=== PATIENT | male | born 1985 | race Caucasian/White ===

== ENCOUNTER 2016-11-14 15:02 | Emergency (ER) | payer OTHER ==
[2016-11-14 16:50] LABS: URINE BILIRUBIN NEGATIVE (NEGATIVE); URINE BLOOD TRACE (NEGATIVE); URINE GLUCOSE (UA) NORMAL (NORMAL); URINE KETONE TRACE (NEGATIVE); URINE LEUKOCYTE ESTERASE 1+ (NEGATIVE); URINE NITRATE POSITIVE (NEGATIVE); URINE PROTEIN 1+ (NEGATIVE)
[2016-11-14 17:02] LABS: URINE BACTERIA 1+ (NONE SEEN); URINE MUCUS 2+; URINE RBC 0-5 /[HPF] (0-2); URINE SQUAMOUS EPITHELIAL CELL 0-10 /[HPF] (NONE SEEN); URINE YEAST FEW (NONE SEEN)
== END 2016-11-14 18:36 | disposition home or self-care (01) ==
LOC: ER 15:02
PROVIDERS: Emergency Medicine
DX: N21.1 Calculus in urethra (principal); N39.0 Urinary tract infection, site not specified; M54.9 Dorsalgia, unspecified; F17.210 Nicotine dependence, cigarettes, uncomplicated
CPT/HCPCS: 74150; 81001; 87086; 96372; 99283-25

== ENCOUNTER 2017-01-12 21:32 | Emergency (ER) | payer OTHER ==
[2017-01-12 22:11] LABS: BASO % 0.4 % (0.2-1.2); EOS # 0.1 10_X3_uL (0.0-0.5); EOS % 1.1 % (0.8-7.0); GRAN # 6.1 10_X3_uL (1.8-5.4); GRAN % 53.5 % (34.0-67.9); HEMATOCRIT 40.1 % (40-51); HEMOGLOBIN 13.6 g/dL (13.7-17.5); LYMPH # 4.3 10_X3_uL (1.3-3.6); LYMPH % 37.8 % (21.8-53.1); MEAN CORPUSCULAR HEMOGLOBIN 31.3 pg (27.0-33.0); MEAN CORPUSCULAR HGB CONC 33.9 g/dL (32.0-36.0); MEAN CORPUSCULAR VOLUME 92.4 fL (79-92); MEAN PLATELET VOLUME 12.2 fl (7.5-11.5); MONO # 0.8 10_X3_uL (0.3-0.8); MONO % 7.2 % (5.3-12.2); PLATELET COUNT 201 x10_3/uL (163-337); RED BLOOD COUNT 4.34 x10_6/uL (4.6-6.1); RED CELL DISTRIBUTION WIDTH 12.6 % (11.6-14.4); WHITE BLOOD COUNT 11.4 x10_3/uL (4.2-9.1)
[2017-01-12 22:11] LABS: URINE BILIRUBIN NEGATIVE (NEGATIVE); URINE BLOOD 3+ (NEGATIVE); URINE GLUCOSE (UA) NORMAL (NORMAL); URINE KETONE NEGATIVE (NEGATIVE); URINE LEUKOCYTE ESTERASE TRACE (NEGATIVE); URINE NITRATE NEGATIVE (NEGATIVE); URINE PROTEIN TRACE (NEGATIVE)
[2017-01-12 22:17] LABS: URINE MUCUS TRACE; URINE RBC >20 /[HPF] (0-2); URINE WBC 0-5 /[HPF] (0-3)
[2017-01-12 22:26] LABS: ALBUMIN 4.7 gm/dL (3.4-5.0); ALKALINE PHOSPHATASE 63 U/L (50-136); ALT/SGPT 15 U/L (7.53-40.17); AST/SGOT 13 U/L (6.66-35.34); BILIRUBIN,TOTAL 0.16 mg/dL (0.0-1.0); BLOOD UREA NITROGEN 18 mg/dL (7-18); CALCIUM 9.1 mg/dL (8.7-10.7); CARBON DIOXIDE 29 mmol/L (21-32); CREATININE 0.9 mg/dL (0.6-1.3); GLUCOSE,RANDOM 146 mg/dL (70-99); SODIUM 139 mmol/L (136-145); TOTAL PROTEIN 6.7 gm/dL (6.4-8.2)
== END 2017-01-12 23:10 | disposition home or self-care (01) ==
LOC: ER 21:32
PROVIDERS: Internal Medicine
DX: R31.9 Hematuria, unspecified (principal); R10.31 Right lower quadrant pain; Z87.442 Personal history of urinary calculi; F17.210 Nicotine dependence, cigarettes, uncomplicated; Z79.891 Long term (current) use of opiate analgesic; Z79.899 Other long term (current) drug therapy
CPT/HCPCS: 36415; 74150; 80053; 81001; 85025; 99284-25

== ENCOUNTER 2017-01-13 22:59 | Observation (INO) | payer OTHER ==
[~2017-01-13] VITALS: Ht 175.3 cm; Wt 97.0 kg
[2017-01-14 00:16] LABS: BASO % 0.2 % (0.2-1.2); EOS # 0.1 10_X3_uL (0.0-0.5); EOS % 0.3 % (0.8-7.0); GRAN # 13.6 10_X3_uL (1.8-5.4); GRAN % 78.7 % (34.0-67.9); HEMATOCRIT 36.2 % (40-51); HEMOGLOBIN 12.4 g/dL (13.7-17.5); LYMPH # 2.5 10_X3_uL (1.3-3.6); LYMPH % 14.1 % (21.8-53.1); MEAN CORPUSCULAR HEMOGLOBIN 31.7 pg (27.0-33.0); MEAN CORPUSCULAR HGB CONC 34.3 g/dL (32.0-36.0); MEAN CORPUSCULAR VOLUME 92.6 fL (79-92); MONO # 1.2 10_X3_uL (0.3-0.8); MONO % 6.7 % (5.3-12.2); PLATELET COUNT 180 x10_3/uL (163-337); RED BLOOD COUNT 3.91 x10_6/uL (4.6-6.1); RED CELL DISTRIBUTION WIDTH 12.5 % (11.6-14.4); WHITE BLOOD COUNT 17.3 x10_3/uL (4.2-9.1)
[2017-01-14 00:25] LABS: ALBUMIN 4.3 gm/dL (3.4-5.0); ALKALINE PHOSPHATASE 52 U/L (50-136); ALT/SGPT 13 U/L (7.53-40.17); AMYLASE 33 U/L (15.62-74.58); AST/SGOT 13 U/L (6.66-35.34); BILIRUBIN,TOTAL 0.39 mg/dL (0.0-1.0); BLOOD UREA NITROGEN 15 mg/dL (7-18); CALCIUM 8.9 mg/dL (8.7-10.7); CARBON DIOXIDE 25 mmol/L (21-32); GLUCOSE,RANDOM 112 mg/dL (70-99); LIPASE 21 U/L (6.75-60.75); POTASSIUM 3.7 mmol/L (3.5-5.1); SODIUM 138 mmol/L (136-145); TOTAL PROTEIN 6.5 gm/dL (6.4-8.2)
[2017-01-14 07:05] LABS: BASO % 0.2 % (0.2-1.2); EOS # 0.1 10_X3_uL (0.0-0.5); EOS % 0.5 % (0.8-7.0); GRAN % 66.3 % (34.0-67.9); HEMATOCRIT 38.3 % (40-51); HEMOGLOBIN 12.7 g/dL (13.7-17.5); LYMPH # 2.8 10_X3_uL (1.3-3.6); MEAN CORPUSCULAR HEMOGLOBIN 30.8 pg (27.0-33.0); MEAN CORPUSCULAR HGB CONC 33.2 g/dL (32.0-36.0); MEAN PLATELET VOLUME 12.2 fl (7.5-11.5); MONO # 1.2 10_X3_uL (0.3-0.8); PLATELET COUNT 179 x10_3/uL (163-337); RED BLOOD COUNT 4.12 x10_6/uL (4.6-6.1); RED CELL DISTRIBUTION WIDTH 12.6 % (11.6-14.4); WHITE BLOOD COUNT 12.1 x10_3/uL (4.2-9.1)
[2017-01-14 07:16] LABS: ALBUMIN 3.9 gm/dL (3.4-5.0); ALKALINE PHOSPHATASE 51 U/L (50-136); ALT/SGPT 11 U/L (7.53-40.17); AST/SGOT 12 U/L (6.66-35.34); BILIRUBIN,TOTAL 0.56 mg/dL (0.0-1.0); BLOOD UREA NITROGEN 14 mg/dL (7-18); CALCIUM 8.9 mg/dL (8.7-10.7); CARBON DIOXIDE 26 mmol/L (21-32); CREATININE 1.2 mg/dL (0.6-1.3); GLUCOSE,RANDOM 95 mg/dL (70-99); POTASSIUM 4.3 mmol/L (3.5-5.1); SODIUM 139 mmol/L (136-145); TOTAL PROTEIN 5.9 gm/dL (6.4-8.2)
== END 2017-01-14 13:15 | disposition home or self-care (01) ==
LOC: ER 22:59 → MS 01-14 00:51
PROVIDERS: Emergency Medicine; ADMIT Surgery
DX: N13.4 Hydroureter (principal); K80.80 Other cholelithiasis without obstruction; N23 Unspecified renal colic; R10.31 Right lower quadrant pain; R11.2 Nausea with vomiting, unspecified; R31.9 Hematuria, unspecified; F17.210 Nicotine dependence, cigarettes, uncomplicated; Z87.442 Personal history of urinary calculi; Z79.891 Long term (current) use of opiate analgesic; Z79.899 Other long term (current) drug therapy
CPT/HCPCS: 36415; 76705; 80053; 82150; 83605; 83690; 85025; 87040; 96361; 96374; 96375; 96376; 99070; 99284-25; G0378